=== PATIENT | male | born 1995 | race Hispanic/Latino ===

== ENCOUNTER 2019-03-08 08:52 | Day surgery (SDC) | payer OTHER ==
[2019-03-08] MEDS ORDERED: SODIUM CHLORIDE 0.9% 1000 ML 1,000 ML IV SCH (10:00)
--- NOTE | 2019-03-08 10:13 | Anesthesia Day of Surgery ---
Anesthesia Day of Surgery - Day of Surgery Patient Examined: Yes Patient H&P Reviewed: Yes Patient is NPO: Yes
--- NOTE | 2019-03-08 10:13 | Anesthesia Consultation ---
Anesthesia Consult and Med Hx Date of service: 03/08/19 - Airway Anesthetic Teeth Evaluation: Good ROM Head & Neck: Adequate Mental/Hyoid Distance: Adequate Mallampati Class: Class II Intubation Access Assessment: Good - Pulmonary Exam CTA: Yes - Cardiac Exam Cardiac Exam: RRR - Pre-Operative Health Status ASA Pre-Surgery Classification: ASA2 Proposed Anesthetic Plan: MAC - Pulmonary Hx Smoking: No - Cardiovascular System Hx Hypertension: No - Central Nervous System Hx Neuromuscular Disorder: Yes (Hx. of syncopy during exercise) - Gastrointestinal Hx Gastroesophageal Reflux Disease: Yes - Endocrine Hx Renal Disease: No - Other Systems Hx Alcohol Use: Yes (Occasionally) Hx Substance Use: No
[2019-03-08] MEDS ORDERED: fentaNYL 100 MCG/2 ML INJ ONE (10:24)
[2019-03-08] MEDS ORDERED: PROPOFOL 200 MG/20 ML VIAL IV ONE (10:24)
[2019-03-08] MEDS ORDERED: LIDOCAINE MPF (2%) 20 MG/1 ML VIAL 5 ML ONE (10:30)
--- NOTE | 2019-03-08 10:42 | Short Stay Summary ---
Short Stay Documentation Date of service: 03/08/19 Narrative H&P: The patient presents for EGD to evaluate chronic, refractory reflux sx and chronic nausea and vomiting. - History Past Medical History: other (Anxiety/depression disorder, probable PTSD by history) Past Surgical History: No surgical history Social history: single, lives with family - Allergies and Medications Current Medications: Allergies ceftibuten [From Cedax] Allergy (Mild, Verified 03/08/19 09:15) Nausea Active Medications Sodium Chloride (Nacl 0.9% 1000 Ml) 1,000 mls @ 50 mls/hr IV DIRECT VIKY - Physical exam General appearance: no acute distress, well-nourished, other (anxious appearing) Integumentary: no rash, no growths, no abnormal pigmentation HEENT: Atraumatic, PERRLA, EOMI, Mucous membr. moist/pink Lungs: Clear to auscultation, Normal air movement Breasts: deferred Heart: Regular rate, Normal S1, Normal S2, No murmurs Gastrointestinal: normoactive bowel sounds, no tenderness, no distended, no masses, no guarding, no organomegaly Male Genitourinary: deferred Rectal Exam: deferred Extremities: no ischemia, pulses intact, pulses symmetrical, No edema, normal temperature, normal color, Full ROM Neurological: Normal gait, Normal speech, Strength at 5/5 X4 ext, Normal tone, S ensation intact - Brief post op/procedure progress note Date of procedure: 03/08/19 Findings: see dictation Estimated blood loss: none Pathology: list (1. duodenal biopsies for h.pylori 2. antral biopsies for h.pylori) Specimen disposition: to lab Condition: stable - Disposition Condition at discharge: Good Disposition: DC-01 TO HOME OR SELFCARE - Discharge Diagnoses (1) GERD (gastroesophageal reflux disease) Status: Acute (2) Nausea and vomiting Status: Acute Short Stay Discharge Plan Activity: other (no driving for 24 hours) Weight Bearing Status: Weight Bear as Tolerated Diet: regular Follow up with: BRYN DUNN [Other] - 7 Days
--- NOTE | 2019-03-08 10:48 | Operative Report ---
Operative Report Operative Report: Date of procedure: 03/08/2019 Procedure: Esophagogastroduodenoscopy with biopsies of the duodenum and biopsies of the stomach antrum Preprocedure diagnosis: Chronic gastroesophageal reflux symptoms refractory to PPI therapy, chronic nausea and vomiting. Post procedure diagnosis: Mild erosive gastritis. Distal erosive esophagitis, LA class B. Periampullary diverticulum otherwise normal duodenum. Endoscopist: Dr. Boswell Anesthesia: Monitored anesthesia care per anesthesia department Medications: Propofol per anesthesia. Estimated blood loss: 0 After careful discussion of the nature and purpose of the procedure as well as details the technique risks benefits and alternatives consent was obtained. The patient was placed in the left lateral decubitus position and medicated per anesthesia. The tip of the Olympus video scope was passed per orum under direct vision into the esophagus and advanced into the stomach and descending duodenum. The descending duodenum revealed a periampullary diverticulum, but the mucosa was normal. The duodenal bulb and pylorus were symmetrical and normal. Multiple biopsies were taken from the descending duodenum to assess for possible celiac disease. The scope was withdrawn into the stomach and the stomach then gently insufflated with air. The antrum revealed scattered punctate erosions but no deep ulcers. 3 biopsies were taken in the prepyloric area for H. pylori testing. The stomach was further insufflated and the scope was then retroflexed and partially withdrawn. The cardia, fundus, and body of the stomach were within normal limits and easily distensible.The scope was then withdrawn in the forward position. The esophagogastric junction was at 40 cm. There was inflammation at the Z line consistent with reflux esophagitis, LA class B. The esophageal body was normal throughout. The procedure was was well tolerated and the patient was observed in recovery. Impressions: #1 normal duodenum except for periampullary diverticulum noted #2 mild erosive antral gastritis. #3 mild to moderate erosive esophagitis consistent with reflux. Plan: Await pathology to exclude celiac disease and H. pylori. The patient will call the office in approximately 10 days to discuss the findings and further management. Electronically signed: Min Boswell MD
[2019-03-08 11:24] VITALS: BP 119/65
--- NOTE | 2019-03-09 08:00 | Post Anesthesia Evaluation ---
- Post Anesthesia Evaluation Patient Participated: Yes Airway Patent: Yes Stable Respiratory Function: Yes Nausea/Vomiting: No Temp > 96.8F: Yes Pain Manageable: Yes Adequeate Hydration: Yes Anesthesia Complications: No Block Receding Appropriately: Not Applicable Patient on Ventilator: No
== END 2019-03-08 08:53 | disposition home or self-care (01) ==
LOC: GIO 08:52 → EDSEX 08:52 → GIO 08:53
PROVIDERS: ATTEND Internal Medicine Gastroenterology
DX: K21.0 Gastro-esophageal reflux disease with esophagitis (principal); R11.2 Nausea with vomiting, unspecified; K29.70 Gastritis, unspecified, without bleeding; K57.30 Diverticulosis of large intestine without perforation or abscess without bleeding; Z88.8 Allergy status to other drugs, medicaments and biological substances; Z72.89 Other problems related to lifestyle
CPT/HCPCS: 43239; 88305; 88342; J2704; J3010; J7030